=== PATIENT | male | born 1975 | race Caucasian/White ===

== ENCOUNTER 2019-06-04 13:27 | Outpatient (CLI) | payer OTHER ==
--- NOTE | 2019-06-05 14:45 | MRI Report ---
Reason: PAIN IN RIGHT SHOULDER, INSTABILITY Procedure Date: 06/04/2019 Accession Number: [id number] / [id number] Procedure: MRI - Shoulder RT W/O CPT Code: FULL RESULT: EXAM: RIGHT SHOULDER MRI WITHOUT CONTRAST EXAM DATE: 06/04/2019 03:10 PM. CLINICAL HISTORY: PAIN IN RIGHT SHOULDER, INSTABILITY. COMPARISON: None. TECHNIQUE: Multiplanar, multisequence T1-weighted and fluid-sensitive sequences of the shoulder without contrast. Other: None. FINDINGS: Acromioclavicular Region: The acromion is type II. The acromioclavicular joint is unremarkable. The coracoacromial and coracoclavicular ligaments are intact. No subacromial/subdeltoid bursal fluid. Glenohumeral Region: No subluxation. No effusion or loose bodies. The articular cartilage is unremarkable. The glenohumeral ligaments and joint capsule are unremarkable. Bone Marrow: Minimal subcortical marrow edema at the greater tuberosity. No acute fracture or bone lesion. Labrum: The labrum is unremarkable on this nonarthrographic study. Musculature/Rotator Cuff: There is an approximately 1 x 1.6 cm moderate to high-grade partial-thickness intrasubstance and articular surface tear at the supraspinatus-infraspinatus tendon junction. The teres minor tendon is unremarkable. There is a low-grade partial-thickness intrasubstance tear at the distal aspect of the subscapularis tendon. No edema or fatty atrophy. Biceps Tendon: The long head of the biceps tendon and biceps karrie are intact. Other: The subcutaneous tissues are unremarkable. IMPRESSION: 1. Moderate to high-grade partial-thickness intrasubstance and articular surface tear at the supraspinatus-infraspinatus tendon junction. 2. Low-grade partial-thickness intrasubstance tear at the distal aspect of the subscapularis tendon. RADIA
== END 2019-06-04 13:28 | disposition home or self-care (01) ==
LOC: DI 13:27
PROVIDERS: ATTEND Family Medicine
DX: M75.101 Unspecified rotator cuff tear or rupture of right shoulder, not specified as traumatic (principal)

== ENCOUNTER 2021-04-06 07:32 | Emergency (ER) | payer OTHER ==
[2021-04-06 08:13] LABS: ALBUMIN 4.3 g/dL (3.2-5.5); ALBUMIN/GLOBULIN RATIO 1.6 (1.0-2.2); BILIRUBIN,TOTAL 0.8 mg/dL (0.2-1.0); CALCIUM 9.6 mg/dL (8.5-10.3); POTASSIUM 4.3 mmol/L (3.5-5.0)
[2021-04-06 08:18] LABS: BILIRUBIN,URINE NEGATIVE (NEGATIVE); GLUCOSE, URINE (UA) NEGATIVE (NEGATIVE); KETONES,URINE (UA) NEGATIVE (NEGATIVE); LEUKOCYTE ESTERASE, URINE NEGATIVE (NEGATIVE); NITRITE,URINE NEGATIVE (NEGATIVE); OCCULT BLOOD,URINE TRACE-LYSE (NEGATIVE); PROTEIN,URINE NEGATIVE (NEGATIVE); UROBILINOGEN,URINE 0.2 (NORMAL) E.U./dL (NORMAL)
[2021-04-06 08:19] LABS: CLARITY,URINE CLEAR (CLEAR)
[2021-04-06 08:26] LABS: BASOPHILS # (AUTO) 0.1 10^3/uL (0.0-0.1); BASOPHILS % (AUTO) 0.8 %; EOSINOPHILS # (AUTO) 0.3 10^3/uL (0.0-0.7); HCT - HEMATOCRIT 46.5 % (42.0-52.0); HGB - HEMOGLOBIN 15.3 g/dL (14.0-18.0); LYMPHOCYTES # (AUTO) 3.2 10^3/uL (1.5-3.5); LYMPHOCYTES % (AUTO) 22.9 %; MEAN CORPUSCULAR HEMOGLOBIN 29.9 pg (27.0-31.0); MEAN CORPUSCULAR HGB CONC 32.9 g/dL (32.0-36.0); MEAN PLATELET VOLUME 9.9 fL (7.4-11.4); MONOCYTES # (AUTO) 1.3 10^3/uL (0.0-1.0); MONOCYTES % (AUTO) 9.5 %; NEUTROPHILS # (AUTO) 9.1 10^3/uL (1.5-6.6); NEUTROPHILS % (AUTO) 64.3 %; PLT - PLATELET COUNT 306 10^3/uL (130-450); RED BLOOD COUNT 5.11 10^6/uL (4.70-6.10); RED CELL DISTRIBUTION WIDTH 13.2 % (12.0-15.0); WHITE BLOOD COUNT 14.1 x10^3/uL (4.8-10.8)
[2021-04-06] MEDS ORDERED: SODIUM CHLORIDE 0.9% 1,000 ML IV STA (09:14)
[2021-04-06] MEDS ORDERED: KETOROLAC 30 MG/ML VIAL IVP STA (09:14)
--- NOTE | 2021-04-06 09:24 | ED Physician Documentation ---
PD HPI ABD PAIN - Stated complaint Stated Complaint: ADB PX - Chief complaint Chief Complaint: Abd Pain - History obtained from History obtained from: Patient - Additional information Additional information: Patient comes emergency department chief complaint of abdominal pain in the left lower quadrant for the last 2 days. He states that he has had diverticulitis before and that this feels similar. Patient denies fevers or chills. No change in bowel habits. No blood in stool. No nausea or vomiting. He states that movement makes the pain worse and nothing really makes it better. No urinary symptoms. Patient is otherwise fairly healthy. No other complaints at this time Review of Systems Ten Systems: 10 systems reviewed and negative Constitutional: reports: Reviewed and negative Eyes: reports: Reviewed and negative Ears: reports: Reviewed and negative Nose: reports: Reviewed and negative Throat: reports: Reviewed and negative Cardiac: reports: Reviewed and negative Respiratory: reports: Reviewed and negative GI: reports: Abdominal Pain : reports: Reviewed and negative Skin: reports: Reviewed and negative Musculoskeletal: reports: Reviewed and negative Neurologic: reports: Reviewed and negative Psychiatric: reports: Reviewed and negative Endocrine: reports: Reviewed and negative Immunocompromised: reports: Reviewed and negative PD PAST MEDICAL HISTORY - Past Medical History Past Medical History: Yes Cardiovascular: None Respiratory: None Neuro: None Endocrine/Autoimmune: None GI: Diverticulitis : None HEENT: None Psych: None Musculoskeletal: None Derm: None - Past Surgical History Past Surgical History: No Ortho: Carpal Tunnel surgery - Present Medications Home Medications: Ambulatory Orders Medication Instructions Recorded Confirmed Amoxicillin 500 mg ORAL TID 04/06/21 04/06/21 - Allergies Allergies/Adverse Reactions: Allergies Allergy/AdvReac Type Severity Reaction Status Date / Time No Known Drug Allergies Allergy Verified 04/06/21 07:38 - Social History Does the pt smoke?: No Smoking Status: Current every day smoker Does the pt drink ETOH?: No Does the pt have substance abuse?: No - Immunizations Immunizations are current?: No Immunizations: No immun - POLST Patient has POLST: No PD ED PE NORMAL - Vitals Vital signs reviewed: Yes - General General: Alert and oriented X 3, No acute distress - HEENT HEENT: Atraumatic, PERRL, EOMI, Moist mucous membranes - Neck Neck: Supple, no meningeal sign - Cardiac Cardiac: RRR, No murmur, Strong equal pulses - Respiratory Respiratory: No respiratory distress, Clear bilaterally - Abdomen Abdomen: Soft, Non distended, Other (Moderate, left lower quadrant, no rebound or guarding.) - Back Back: No CVA TTP - Derm Derm: Normal color, Warm and dry, No rash - Extremities Extremities: No deformity, No edema, No calf tenderness / cord - Neuro Neuro: Alert and oriented X 3, 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, Normal speech - Psych Psych: Normal mood, Normal affect Results - Vitals Vitals: Oxygen O2 Source Room air - Labs Labs: Laboratory Tests 04/06/21 04/06/21 04/06/21 07:50 07:50 08:00 WBC 14.1 H RBC 5.11 Hgb 15.3 Hct 46.5 MCV 91.0 MCH 29.9 MCHC 32.9 RDW 13.2 Plt Count 306 MPV 9.9 Neut # (Auto) 9.1 H Lymph # (Auto) 3.2 [place] # (Auto) 1.3 H Eos # (Auto) 0.3 Baso # (Auto) 0.1 Absolute Nucleated RBC 0.00 Nucleated RBC % 0.0 Sodium 142 Potassium 4.3 Chloride 103 Carbon Dioxide 30 Anion Gap 9.0 BUN 14 Creatinine 1.0 Estimated GFR (MDRD) 82 L Glucose 112 H Calcium 9.6 Total Bilirubin 0.8 AST 14 ALT 19 Alkaline Phosphatase 55 Total Protein 7.0 Albumin 4.3 Globulin 2.7 Albumin/Globulin Ratio 1.6 Lipase 22 Urine Color DARK YELLOW Urine Clarity CLEAR Urine pH 6.0 Ur Specific [place] 1.025 Urine Protein NEGATIVE Urine Glucose (UA) NEGATIVE Urine Ketones NEGATIVE Urine Occult Blood TRACE-LYSE Urine Nitrite NEGATIVE Urine Bilirubin NEGATIVE Urine Urobilinogen 0.2 (NORMAL) Ur Leukocyte Esterase NEGATIVE Ur Microscopic Review NOT INDICATED Urine Culture Comments NOT INDICATED - Rads (name of study) CT abd/pelvis Radiology: Final report received, EMP read indepedently, See rad report (thickened, irregular rectal wall concerning for mass. Possible, early LBO.) PD MEDICAL DECISION MAKING - ED course Complexity details: reviewed results, re-evaluated patient, considered differential, d/w patient ED course: Patient was treated symptomatically with Toradol and IV fluids and worked up with labs, UA and ultimately, CT scan of the abdomen and pelvis. Due to CT maintenance, there was some delay in the CT being performed, and pt left the department before final radiology interpretation was back, stating he was tired of waiting. I was in a procedure with another patient at this time, and pt was gone when I came out. I reviewed his results, which showed no diverticulitis, but did show findings concerning for rectal mass/neoplasm. The possibility of early bowel obstruction was raised. However, this was not certain, and pt's sx did not at all indicate obstruction at this point in time. I called the pt at home that day at the number on file, and was able to speak to him regarding his results. I have advised him of the need for urgent follow up to further evaluate the possible mass. Pt states he has an appointment tomorrow with his PCP, and will discuss referral for scope and the findings with her. We have discussed the usual indications for return. Departure - Departure Disposition: 07 Against Medical Advice Discharge Date/Time: 04/06/21 12:50
[2021-04-06 11:04] VITALS: BP 122/85
[2021-04-06] MEDS ORDERED: IOPAMIDOL-300 100 ML VIAL ONE (11:20)
--- NOTE | 2021-04-06 12:25 | CT Report ---
PROCEDURE: Abdomen/Pelvis W INDICATIONS: llq pain, h/o diverticulitis CONTRAST: IV CONTRAST: Isovue 300 ml: 100 PO CONTRAST: *NO PO CONTRAST TECHNIQUE: After the administration of IV contrast, 5 mm thick sections acquired from the diaphragms to the symp hysis. 5 mm thick coronal and sagittal reformats were acquired. For radiation dose reduction, the f ollowing was used: automated exposure control, adjustment of mA and/or kV according to patient size. COMPARISON: None. FINDINGS: Image quality: Excellent. ABDOMEN: Lung bases: Lung bases are clear. Heart size is normal. Solid organs: Liver and spleen are normal in size and enhancement. Diffuse fatty liver infiltration can be seen. Gallbladder wall does not appear thickened. Biliary system is non dilated. Pancre as enhances normally. No adrenal nodules. Kidneys demonstrate normal size and enhancement, without hydronephrosis. Peritoneum and bowel: Sternotomy changes are noted. The sigmoid colon and the left lower quadrant. There is asymmetric wall thickening seen involving the left lateral aspect of the rectum, as on serie s 3 image 87. No significant diverticula formation can be seen. There is a moderate amount of stool s een throughout the colon. No dilated loops of small bowel are seen. No free air or significant free fluid can be seen. A normal appendix is incidentally noted. Nodes and vessels: No retroperitoneal or mesenteric adenopathy by size criteria. Aorta and inferior vena cava are normal in size. Miscellaneous: No ventral hernias. PELVIS: Genitourinary: Bladder wall thickness is normal. Miscellaneous: No inguinal hernias or adenopathy. Bones: No suspicious bony lesions. No vertebral body compression fractures. IMPRESSION: Negative for diverticulitis. Concern is raised for rectal neoplasm, with asymmetric wall thickening. Differential diagnosis would include inflammatory change or artifact. When clinically appropriate, please consider lower endoscopy for further evaluation. This patient has a moderate amount of stool within the colon. Differential diagnosis includes constip ation versus partial obstruction. Normal appendix. Incidental note is made of: Fatty liver infiltration Note: Dr. Apodaca was not available to discuss this case at the time of this dictation. Case discussed by telephone with Clotilde Canales at 11:22 AM [place] time on 04/06/2021. Reviewed by: Karl Carson MD on 04/06/2021 11:23 AM [facility] Approved by: Karl Carson MD on 04/06/2021 11:23 AM BRETT Station ID: [id number]
== END 2021-04-06 12:50 | disposition left against medical advice (07) ==
LOC: ED 07:32
DX: R19.04 Left lower quadrant abdominal swelling, mass and lump (principal); F17.200 Nicotine dependence, unspecified, uncomplicated
CPT/HCPCS: 36415; 74177; 80053; 81003; 83690; 85025; 96361; 96374; 99284; Q9967; 81001; 87086